=== PATIENT | male | born 1990 | race Caucasian/White ===

== ENCOUNTER 2019-07-26 13:50 | Emergency (ER) | payer BC, SELFPAY ==
[2019-07-26 14:02] VITALS: BP 142/93; PULSE 88; RESP 20; TEMP 36.8; O2SAT 100
--- NOTE | 2019-07-26 14:05 | ED.URI ---
HPI - URI/Sore Throat General Chief Complaint: Upper Respiratory Infection Stated Complaint: congestion/SOB/cough Time Seen by Provider: 07/26/19 14:05 Source: patient and RN notes reviewed Mode of arrival: ambulatory Limitations: no limitations History of Present Illness HPI Narrative: A 29 y/o male, who is a nonsmoker with a hx of asthma, presents to the with a cough and nasal congestion beginning last night. He reports associated SOB and wheezes. He notes that he has used his inhaler which helped alleviate his symptoms. He denies any sore throat, ear ache, fever, vomiting, and all other medical complaints at this time. MD elicited complaint: cough Pertinent past history: asthma Onset (ago): hour(s) (last night) Relieving factors: other (Inhaler) Associated symptoms: nasal congestion, shortness of breath and other (wheezes) Treatments prior to arrival: other (Inhaler) Related Data Home Medications Medication Instructions Recorded Confirmed albuterol sulfate [ProAir HFA] 2 puff INHALATION Q4-6H 07/26/19 07/26/19 Allergies Allergy/AdvReac Type Severity Reaction Status Date / Time No Known Allergies Allergy Verified 07/26/19 13:53 Review of Systems Review of Systems: Narrative: General/Constitutional: No weight loss,fever Eyes: N0: Redness,discharge Ears/Nose/Throat: No: Epistaxis,ear discharge, sore throat, ear ache. Reports nasal congestion. Respiratory: Denies: Hemoptysis. Reports a cough, wheezes, and SOB. Gastrointestinal: No Vomiting, Bleeding-rectal Skin: No Lumps, eruption Neurologic: No Focal Weakness,Sz Hematologic: Denies: Petechiae/Purpura Psychiatric: No: Suicida ideationl All Other Systems: Reviewed and Negative PMFSH Past Medical History Medical History (Updated 07/26/19 @ 14:28 by Davi Moe MD) Asthma History of retained foreign body fully removed Surgical History Surgical History (Updated 07/26/19 @ 14:19 by Aquiles Joy) No history of previous surgery Social History Social History (Updated 07/26/19 @ 14:19 by Aquiles Joy) Smoking status: Never smoker Gender identity (if verbalized by the patient): Male Exam Narrative: Exam Narrative: General Appearance: Well appearing, Well nourished EYE: PERRLA, Conjunctiva clear Ears: Auditory canal normal, TM normal Nose: Rhinorrhea, Mucousal erythema Mouth/Throat: MM moist, Uvula midline, Pharyngeal erythema Neck: Supple, No adenopathy Respiratory: No respiratory distress, Breath sounds equal, Clear to auscultation Cardiovascular: RRR, No JVD Musculoskeletal: Non tender, Normal strength Skin: Warm, Dry Neurological: A&O x3, CN II-XII intact Psychiatric: Normal mood, Normal affect Course Vital Signs Vital signs: Vital Signs Temperature 98.3 F 07/26/19 14:02 Pulse Rate 88 07/26/19 14:02 Respiratory Rate 07/26/19 14:02 Blood Pressure 142/93 H 07/26/19 14:02 Pulse Oximetry 100 07/26/19 14:02 Temperature 98.3 F 07/26/19 14:02 Pulse Rate 88 07/26/19 14:02 Respiratory Rate 07/26/19 14:02 Blood Pressure 142/93 H 07/26/19 14:02 Pulse Oximetry 100 07/26/19 14:02 MDM - URI/Sore Throat Lab Data Labs: Influenza A Screen Negative Reference Range: Negative Influenza B Screen Negative Reference Range: Negative Discharge Plan Discharge Clinical Impression: Influenza-like illness Patient Disposition: Home, Self-Care Condition: Stable Instructions: Antibiotic Form Prescriptions: New azithromycin 250 mg tablet See Rx Instructions .ROUTE .COMPLEX Qty: 6 RF: 0 prednisone 20 mg tablet 60 mg PO DAILY Qty: 15 RF: 0 codeine-guaifenesin 10-100 mg/5 mL liquid 7.5 ml PO Q6H PRN (Reason: cough) Qty: 118 RF: 0 albuterol sulfate [Ventolin HFA] 90 mcg/actuation HFA aerosol inhaler 2 puff INHALATION QID PRN (Reason: shortness of breath or wheezing) Qty: 8.5 RF: 1 No Action albuterol sulfate [
== END 2019-07-26 14:33 | disposition home or self-care (01) ==
PROVIDERS: Emergency Provider Emergency Medicine
DX: R06.02 Shortness of breath (principal); R05 Cough; R09.81 Nasal congestion
CPT/HCPCS: 87804; 99213; G0463